=== PATIENT | male | born 1975 ===

== ENCOUNTER 2018-05-03 20:47 | Emergency (ER) | payer OTHER ==
[2018-05-03 21:05] VITALS: BP 177/105
--- NOTE | 2018-05-03 21:05 | UC ---
Hypertension HPI - HPI Summary HPI Summary: 43 yo male presents with concerns about high blood pressure. He tells me that that he recently moved to the area from [place]. In [place] he was diagnosed with HTN and was on a medication called natrilix SR (Indapamide in the [place]) and his BP was stable for 4+ years. He sees Dr. Teran here in [place] and pt tells me that PCP wanted to see how pt did without BP medication and told him to stop it and see how he feels and his BP is doing. Pt stopped it for 8 days and began to develop a headache. Yesterday he took his BP and noted it to be around 150/ 100 with a headache so he restarted his inapamide once daily. Today he had a headache again and checked his BP and was similar 150s/100, prompting his visit to the . Currently he has a mild headache. Denies dizziness, SOB, chest pain, palpitations, n/v. He denies any other PMHx. - History of Current Complaint Stated Complaint: HIGH BP Time Seen by Provider: 05/03/18 21:05 Hx Obtained From: Patient Onset/Duration: Gradual Onset - Allergies/Home Medications Allergies/Adverse Reactions: Allergies Allergy/AdvReac Type Severity Reaction Status Date / Time No Known Allergies Allergy Verified 05/03/18 21:06 Home Medications: Home Medications Acetaminophen TAB* [Tylenol TAB*] 325 mg PO Q4H PRN 05/03/18 [History Confirmed 05/03/18] Indapamide TAB* [Lozol TAB*] 1.25 mg PO DAILY 05/03/18 [History Confirmed ] PMH/Surg Hx/FS Hx/Imm Hx Cardiovascular History: Hypertension - Surgical History Surgical History: Yes Surgery Procedure, Year, and Place: Hernia. Hemorrhoidectomy - Family History Known Family History: Positive: Unknown - Social History Occupation: Employed Full-time Lives: With Family Alcohol Use: Occasionally Substance Use Type: None Smoking Status (MU): Never Smoked Tobacco Review of Systems All Other Systems Reviewed And Are Negative: Yes Constitutional: Positive: Negative Skin: Positive: Negative Eyes: Positive: Negative Respiratory: Positive: Negative Cardiovascular: Positive: Negative Gastrointestinal: Positive: Negative Neurovascular: Positive: Negative Musculoskeletal: Positive: Negative Neurological: Positive: Headache Psychological: Positive: Negative Physical Exam - Summary Physical Exam Summary: GENERAL: NAD. WDWN. No pain distress. SKIN: No rashes, sores, or open wounds. HEENT: Head: AT/NC Eyes: PERRLA. EOM intact. Conjunctiva clear without inflammation or discharge. NECK: Supple. Nontender. No lymphadenopathy. CHEST: CTAB. No r/r/w. No accessory muscle use. Breathing comfortably and in no distress. CV: RRR. Without m/r/g. Pulses intact. Brisk cap refill. No JVD or carotid bruit appreciated. No lower leg edema. NEURO: Alert. PSYCH: Age appropriate behavior. Triage Information Reviewed: Yes Vital Signs: Vital Signs: Temp Pulse Resp BP Pulse Ox 98.3 F 53 16 177/105 99 05/03/18 20:57 05/03/18 20:57 05/03/18 20:57 05/03/18 20:57 05/03/18 20:57 Vital Signs Reviewed: Yes Hypertension Course/Dx - Course Course Of Treatment: His BP is high here today and he does have a mild headache , but no indication of end-organ disease. He tells me that he has a f/u scheduled with his PCP for 05/11/18 for a physical and his BP recheck. Discussed with pt to increase his Indapamide to twice po in the morning and keep his f/u with PCP for a recheck of his BP. If pt develops a severe headache, dizziness, nausea, vomiting, SOB, or chest pain to call 911 or go to the ED. - Differential Dx/Diagnosis Provider Diagnosis: HTN (hypertension) Discharge - Sign-Out/Discharge Documenting (check all that apply): Patient Departure All imaging exams completed and their final reports reviewed: No Studies - Discharge Plan Condition: Stable Disposition: HOME Patient Education Materials: Hypertension (ED) Referrals: Zachery Teran MD [Medical Doctor] - Additional Instructions: If you develop a fever, shortness of breath, chest pain, new or worsening symptoms - please call your PCP or go to the ED. Please take TWO TABLETS of your blood pressure medication in the morning. Please keep your appointment with Dr. Teran on May 11 to discuss how your blood pressure has been doing. - Billing Disposition and Condition Condition: STABLE Disposition: Home - Attestation Statements Provider Attestation: I was available for consult. This patient was seen by the [facility]. The patient was not presented to, seen by, or examined by me. -Rubén
== END 2018-05-03 21:42 | disposition home or self-care (01) ==
LOC: UCEAST 20:47
DX: I10 Essential (primary) hypertension (principal); R51 Headache
CPT/HCPCS: 99201; G0463